=== PATIENT | male | born 1985 | race Caucasian/White ===

== ENCOUNTER 2019-02-28 12:43 | Emergency (ER) | payer OTHER ==
[~2019-02-28] VITALS: Ht 185.4 cm; Wt 76.2 kg
[2019-02-28] MEDS ORDERED: NKM (12:58)
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
[2019-02-28 13:19] VITALS: BP 127/81
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
--- NOTE | 2019-02-28 13:27 | NUR ---
ED Nurse Note: technical administrative assistant on bedside.
[2019-02-28] MEDS ORDERED: IBUPROFEN600 MG ORAL (14:16)
[2019-02-28 14:22] VITALS: BP 132/76
--- NOTE | 2019-02-28 14:23 | NUR ---
ED Nurse Note: spling and arm sling applied on the r elbow
--- NOTE | 2019-02-28 14:23 | NUR ---
ER DISCHARGE NOTE: Patient is cleared to be discharged per ERMD, pt is aox4, on room air, with stable vital signs. pt was . pt is able to ambulate with steady gait. pt took all belongings.
--- NOTE | 2019-03-01 09:50 | Diagnostic Imaging Report ---
Indication: Pain, fall, trauma Technique: 3 views of the left shoulder Comparison: None Findings: No acute fractures or dislocations. Joint spaces are preserved. Impression: Negative
--- NOTE | 2019-03-01 09:52 | Diagnostic Imaging Report ---
Indications: Pain, fall, trauma Technique: Two views of the right humerus Comparison: none Findings: No acute fractures. No dislocations. Joint spaces are preserved. No radiopaque foreign body. Normal mineralization. Impression: No acute process
--- NOTE | 2019-03-01 09:54 | Diagnostic Imaging Report ---
Indications:Pain, fall, trauma Technique: Three or 4 views of the right elbow Comparison: None Findings: There is a joint effusion. There is a nondisplaced fracture of the radial head. No other fractures are demonstrated. Impression: Positive for nondisplaced radial head fracture This agrees with the findings reported by the emergency room physician in the electronic medical record
--- NOTE | 2019-03-01 09:56 | Diagnostic Imaging Report ---
Clinical Indication:Fall, trauma, pain Technique: 3 views of the right wrist Comparison: None Findings: There is a transverse fracture of the scaphoid waist. This is nondisplaced. No other acute fractures. No dislocations. Impression: Positive for nondisplaced scaphoid fracture This agrees with the preliminary interpretation reported by the emergency room physician in the electronic medical record
== END 2019-02-28 14:24 | disposition home or self-care (01) ==
LOC: EMR 13:13
DX: S52.124A Nondisplaced fracture of head of right radius, initial encounter for closed fracture (principal); S63.501A Unspecified sprain of right wrist, initial encounter; S62.001A Unspecified fracture of navicular [scaphoid] bone of right wrist, initial encounter for closed fracture; W19.XXXA Unspecified fall, initial encounter; Y93.55 Activity, bike riding
CPT/HCPCS: 29105; 99284